=== PATIENT | male | born 1980 | race Caucasian/White ===

== ENCOUNTER → 2016-05-10 | Outpatient (REF) ==
--- NOTE | 2016-05-11 03:12 | REP ---
Clinical: thoracic pain and disability . Technique: AP, lateral, and swimmers views. Findings: Alignment and kyphosis is maintained. Vertebral bodies intact. No acute fracture / compression injury or subluxation. No degenerative changes. Paravertebral soft tissues are normal. Impression: Normal thoracic spine series. Signed by Jason Wheatley MD 05/11/2016 03:03 A
== END ==
LOC: M SMT 14:13
PROVIDERS: ATTEND Internal Medicine
DX: Z02.71 Encounter for disability determination (principal)